=== PATIENT | female | born 1950 | race Caucasian/White ===

== ENCOUNTER → 2017-02-26 12:58 | Outpatient (CLI) | payer BC | END | disposition home or self-care (01) | LOC: D.LAB 12:58 | DX: E03.9 Hypothyroidism, unspecified (principal) ==

== ENCOUNTER → 2018-03-21 10:29 | Outpatient (CLI) | payer MEDICARE, BC | END | disposition home or self-care (01) | LOC: D.MRI 10:29 | DX: M79.605 Pain in left leg (principal) ==